=== PATIENT | female | born 1985 | race Caucasian/White ===

== ENCOUNTER → 2019-01-30 | Outpatient (CLI) | payer OTHER | LOC: M.NUC 13:00 | DX: R10.11 Right upper quadrant pain (principal) ==

== ENCOUNTER → 2021-06-18 | Outpatient (CLI) | payer OTHER | LOC: M.ULTRA 13:26 | PROVIDERS: ATTEND Nurse Practitioner Family | DX: N92.6 Irregular menstruation, unspecified (principal) ==